=== PATIENT | male | born 1975 | race African-American/Black ===

== ENCOUNTER 2018-11-29 13:13 | Emergency (ER) | payer SELFPAY ==
[~2018-11-29] VITALS: Ht 170.2 cm; Wt 72.0 kg
[2018-11-29 13:18] VITALS: BP 135/82
== END 2018-11-29 17:33 | disposition left against medical advice (07) ==
LOC: ER 13:13
DX: R10.9 Unspecified abdominal pain (principal); Z53.21 Procedure and treatment not carried out due to patient leaving prior to being seen by health care provider